=== PATIENT | male | born 1960 | race Caucasian/White ===

== ENCOUNTER 2021-05-16 18:13 | Inpatient (IN) | payer OTHER ==
[~2021-05-16] VITALS: Ht 182.9 cm; Wt 40.8 kg
[~2021-05-16 18:13] MED LIST: OXYC30TA2 PO
--- NOTE | 2021-05-16 18:33 | NUR ---
Dr Early at the bedside for MSE.
[2021-05-16] MEDS ORDERED: IV NORMAL SALINE 1000 ML BAG IV ONE (18:45)
[2021-05-16] MEDS ORDERED: IV D5/ 0.9% NACL 1,000 ML IV ONE (18:45)
[2021-05-16] MEDS ORDERED: HYDROMORPHONE 1 MG/1 ML DISP.SYRIN IV ONE (18:45)
[2021-05-16] MEDS ORDERED: ONDANSETRON 4 MG/2 ML VIAL IV ONE (18:45)
[2021-05-16] MEDS ORDERED: IPRATROPIUM BROMIDE 0.5 MG/2.5 ML NEBU NEB ONE (19:00)
[2021-05-16] MEDS ORDERED: ALBUTEROL SULFATE 2.5 MG/3 ML NEBU NEB ONE (19:00)
[2021-05-16] MEDS ORDERED: ALBUTEROL SULFATE 2.5 MG/3 ML NEBU ONE (19:00)
[2021-05-16] MEDS ORDERED: IPRATROPIUM BROMIDE 0.5 MG/2.5 ML NEBU ONE (19:01)
[2021-05-16] MEDS ORDERED: ONDANSETRON 4 MG/2 ML VIAL ONE (19:02)
[2021-05-16] MEDS ORDERED: HYDROMORPHONE 1 MG/1 ML DISP.SYRIN ONE (19:02)
--- NOTE | 2021-05-16 19:12 | NUR ---
HL on Rt Fa infiltrated, removed, placed a new line on LT Fa angio #20. Pt is very loud, restless and moans but unable to point exact location of pain.
[2021-05-16 19:31] LABS: HEMATOCRIT 36.9 % (36.7-47.1); MEAN CORPUSCULAR HEMOGLOBIN 29.1 uug (23.8-33.4); MEAN CORPUSCULAR VOLUME 88.8 fL (73.0-96.2); PLATELET COUNT (AUTO) 432 K/uL (152-348)
[2021-05-16 19:37] LABS: CREATININE 0.8 mg/dL (0.6-1.3)
[2021-05-16 19:50] LABS: BILIRUBIN,DIRECT 0.1 mg/dL (0.0-0.2); BILIRUBIN,TOTAL 0.4 mg/dL (0.2-1.0); TOTAL PROTEIN, SERUM 8.6 g/dL (6.4-8.2)
--- NOTE | 2021-05-16 21:50 | NUR ---
Admitted patient in the med surg floor under the care of Dr. Cevallos, patient awake but with confusion, patient underweight, skin and bone, with multiple scabs and skin tear on both arms, bilateral knees redness/abrasion, and dried feet with callous. Patient looks weak requires total assist with adl's. cont to monitor.
[2021-05-16 22:20] VITALS: BP 128/75
--- NOTE | 2021-05-16 22:20 | NUR ---
Pt. admitted to tele , under care of Dr. Paige Dx: failure to thrive Belongs List completed
[2021-05-16] MEDS ORDERED: ZOLPIDEM 5 MG TABLET PO PRN (23:30)
[2021-05-16] MEDS ORDERED: Z GUARD REMEDY PASTE 57 GM TUBE TOP PRN (23:30)
[2021-05-16] MEDS ORDERED: ACETAMINOPHEN 325 MG TABLET PO PRN (23:30)
[2021-05-16] MEDS ORDERED: MAGNESIUM HYDROXIDE 30 ML LIQUID UDC PO PRN (23:30)
[2021-05-16] MEDS ORDERED: ONDANSETRON 4 MG/2 ML VIAL IV PRN (23:30)
[2021-05-16] MEDS: IV NS 1000 ML 1,000 ML IV PRN (23:44)
[2021-05-17 00:30] VITALS: BP 129/60
[2021-05-17] MEDS: MORPHINE SULFATE 2 MG/1 ML DISP.SYRIN IV PRN ×4 (00:49→21:26)
--- NOTE | 2021-05-17 01:34 | NUR ---
Patient agitated screaming and yelling, complain of unable to urinate assisted to toilet able to urinate approximate 600cc yellow color urine, did bladder scan done with 207 cc in the bladder, given Morphine 2mg iv for pain and comfort, but still yelling screaming, unable to put iv line at this time, too agitated. Notify Dr Brock martinez, awaiting
--- NOTE | 2021-05-17 01:38 | NUR ---
Patient pulled out iv lines, unable to contract not to touch IV.
--- NOTE | 2021-05-17 02:00 | NUR ---
Dr Gutiérrez has new order.
[2021-05-17] MEDS: LORAZEPAM 2 MG/1 ML VIAL IV PRN (02:03)
[2021-05-17 04:35] VITALS: BP 121/51
[2021-05-17 05:53] LABS: HEMATOCRIT 32.1 % (36.7-47.1); MEAN CORPUSCULAR HEMOGLOBIN 28.6 uug (23.8-33.4); MEAN CORPUSCULAR VOLUME 87.9 fL (73.0-96.2); PLATELET COUNT (AUTO) 319 K/uL (152-348)
[2021-05-17 06:09] LABS: ALANINE AMINOTRANSFERASE 59 U/L (16-63); ALKALINE PHOSPHATASE 123 U/L (50-136); ASPARTATE AMINOTRANSFERASE 47 U/L (15-37); BILIRUBIN,DIRECT 0.1 mg/dL (0.0-0.2); BILIRUBIN,TOTAL 0.2 mg/dL (0.2-1.0); CARBON DIOXIDE 31 mmol/L (21-32); CHLORIDE 107 mmol/L (98-107); CREATININE 0.6 mg/dL (0.6-1.3); GLUCOSE 73 mg/dL (74-106); MAGNESIUM 1.7 mg/dL (1.8-2.4); PHOSPHOROUS 4.6 mg/dL (2.5-4.9); POTASSIUM 4.7 mmol/L (3.5-5.1); UREA NITROGEN, BLOOD 32 mg/dL (7-18)
--- NOTE | 2021-05-17 06:47 | NUR ---
Patient asleep but arousable, no complain of pain at this time, patient cooperative and redirectable at this time, no sob no chest pain. Patient has new iv line, continue to encourage not to remove iv lines, cont to monitor.
[2021-05-17] MEDS ORDERED: MAGNESIUM SULFATE/D5W 100 ML IV SCH (11:00)
[2021-05-17 11:03] VITALS: BP 91/58
[2021-05-17 15:43] VITALS: BP 103/57
[2021-05-17] MEDS: ENSURE ENLIVE (VAN) 240 ML LIQUID PO SCH (16:55)
[2021-05-17] MEDS: IV NS 1000 ML 1,000 ML IV PRN (17:01)
--- NOTE | 2021-05-17 19:26 | NUR ---
pt in bed resting, call light within reach, all medications given as ordered, room air, no signs of distress. bed low and locked, IV on left RA, patent intact. will endorse to oncoming nurse.
--- NOTE | 2021-05-17 20:00 | NUR ---
RECEIVED PATIENT ASLEEP IN BED. EASILY AROUSABLE. NO C/O PAIN OR DISCOMFORT. IVF INFUSING WELL TO LEFT FA #[id number] GAUGE. VS WNL. CALL LIGHT IN REACH. ALL NEEDS ATTENDED. WILL CONTINUE TO MONITOR.
[2021-05-17 20:13] VITALS: BP 91/58
[2021-05-18] MEDS: LORAZEPAM 2 MG/1 ML VIAL IV PRN ×2 (00:26→12:38)
[2021-05-18] MEDS: MORPHINE SULFATE 2 MG/1 ML DISP.SYRIN IV PRN (01:48)
[2021-05-18 06:17] LABS: HEMATOCRIT 32.1 % (36.7-47.1); MEAN CORPUSCULAR HEMOGLOBIN 29.3 uug (23.8-33.4); MEAN CORPUSCULAR VOLUME 88.7 fL (73.0-96.2); PLATELET COUNT (AUTO) 318 K/uL (152-348)
[2021-05-18 07:46] LABS: CARBON DIOXIDE 32 mmol/L (21-32); CHLORIDE 109 mmol/L (98-107); CREATININE 0.5 mg/dL (0.6-1.3); GLUCOSE 113 mg/dL (74-106); MAGNESIUM 1.9 mg/dL (1.8-2.4); PHOSPHOROUS 2.9 mg/dL (2.5-4.9); POTASSIUM 3.9 mmol/L (3.5-5.1); UREA NITROGEN, BLOOD 16 mg/dL (7-18)
[2021-05-18 08:00] VITALS: BP 92/62
[2021-05-18] MEDS: ENSURE ENLIVE (VAN) 240 ML LIQUID PO SCH ×2 (09:11→12:39)
[2021-05-18] MEDS ORDERED: HYDROMORPHONE 1 MG/1 ML DISP.SYRIN IV PRN (09:15)
[2021-05-18] MEDS: IV NS 1000 ML 1,000 ML IV PRN (10:26)
[2021-05-18 12:35] VITALS: BP 128/85
--- NOTE | 2021-05-18 15:27 | NUR ---
Patient is discharged to the unit, Dr. Cevallos made aware. Discharge instructions given. VS taken . Patient denies of any pain on room air saturating at 95%. Patient is alert and oriented x 3-4 . Body assessment done, belongings given, walker given to the patient . Patient is stable removed Left arm IV site. Assisted him in the lobby via wheelchair with [employer] and security.
== END 2021-05-18 15:30 | disposition home or self-care (01) | DRG 281 ==
LOC: ER 18:13 → TELE3 21:35 → MEDSURG3 05-17 04:48
PROVIDERS: ADMIT Internal Medicine; ATTEND Internal Medicine
DX: C22.9 Malignant neoplasm of liver, not specified as primary or secondary (principal); N17.0 Acute kidney failure with tubular necrosis; E43 Unspecified severe protein-calorie malnutrition; G93.41 Metabolic encephalopathy; R64 Cachexia; R62.7 Adult failure to thrive; E87.2 Acidosis; D63.8 Anemia in other chronic diseases classified elsewhere; R53.1 Weakness; J44.9 Chronic obstructive pulmonary disease, unspecified; E88.09 Other disorders of plasma-protein metabolism, not elsewhere classified; Z68.1 Body mass index [BMI] 19.9 or less, adult; Z86.19 Personal history of other infectious and parasitic diseases; Z20.822 Contact with and (suspected) exposure to COVID-19; Z87.01 Personal history of pneumonia (recurrent)
CPT/HCPCS: 36415; 70030-TC; 71045; 83605; 83735; 84100; 85025; 85730; 87040; 93005; A4663; G0378; J1170; J2060; J2270; J2405; J3475; J3590; J7030; J7042